=== PATIENT | female | born 1995 ===

== ENCOUNTER 2019-01-24 13:43 | Emergency (ER) | payer BC ==
[2019-01-24 14:23] LABS: Basophils % (Auto) 0.2 % (0.0-1.8); Hematocrit 36.2 % (30.3-42.9); Hemoglobin 12.2 gm/dl (10.1-14.3); Lymphocytes # (Auto) 0.9 K/mm3 (1.2-5.4); Lymphocytes % (Auto) 8.3 % (13.4-35.0); Mean Corpuscular HGB Conc 34 % (30-34); Mean Corpuscular Volume 86 fl (79-97); Monocytes # (Auto) 1.3 K/mm3 (0.0-0.8); Monocytes % (Auto) 11.6 % (0.0-7.3); Platelet Count 273 K/mm3 (140-440); Red Blood Count 4.21 M/mm3 (3.65-5.03); Red Cell Distribution Width 15.5 % (13.2-15.2)
[2019-01-24] MEDS ORDERED: ZOFRAN IV ONE (15:15)
[2019-01-24] MEDS ORDERED: PEPCID IV ONE (15:15)
[2019-01-24 15:27] LABS: Bacteria,Urine 3+ /HPF (Negative); Bilirubin,Urine NEG (Negative); Blood,Urine LG (Negative); Color,Urine Red (Yellow); Mucus,Urine 3+ /HPF; Urobilinogen,Urine < 2.0 mg/dL (<2.0)
[2019-01-24 15:28] LABS: RBC,Urine > 182.0 /HPF (0.0-6.0)
[2019-01-24] MEDS ORDERED: D5NS 1,000 ML IV SCH (16:00)
--- NOTE | 2019-01-24 16:37 | Emergency Department Report ---
<CADEN WILSON - Last Filed: 01/24/19 16:33> ED HPI - General Chief complaint: Vaginal Bleeding Stated complaint: POSS MISCARRIAGE Time Seen by Provider: 01/24/19 14:58 Source: patient Mode of arrival: Ambulatory Limitations: No Limitations - History of Present Illness Initial comments: Patient is a 23-year-old [place] female who is presenting with possible miscarriage. Patient is 7 weeks and is here stating that she has some vaginal bleeding. Patient states she was at [facility] 5 days ago with similar complaints. Patient's was told that she was having a threatened miscarriage however she did have a intrauterine at that time. Patient states that she has had worsening suprapubic cramping which is now 9 out of 10. It was less when she was at hospital. patient states that the bleeding subsided between her last er visit and today however it is restarted. patient has some small clots present. patient's had nausea and vomiting 2 and states she cannot keep anything down for the last 2 days. patient states she feels weak and fatigued. pain is 6 out of 10 - Related Data Previous Rx's Medication Instructions Recorded Last Taken Type Doxylamine Succinate/Vit B6 1 each PO TID PRN #20 tablet. 01/24/19 Unknown Rx [Dre Sharpe 10-10 mg Tablet] Allergies Allergy/AdvReac Type Severity Reaction Status Date / Time No Known Allergies Allergy Unverified 01/24/19 13:45 ED Review of Systems Comment: All other systems reviewed and negative ED Past Medical Hx - Past Medical History Previous Medical History?: Yes Additional medical history: Anemia - Surgical History Past Surgical History?: No - Social History Smoking Status: Never Smoker Substance Use Type: None - Medications Home Medications: Home Medications Medication Instructions Recorded Confirmed Last Taken Type Doxylamine Succinate/Vit B6 1 each PO TID PRN #20 tablet. 01/24/19 Unknown Rx [Dre Sharpe 10-10 mg Tablet] ED Physical Exam - General Limitations: No Limitations General appearance: alert, in no apparent distress - Head Head exam: Present: atraumatic, normocephalic - Eye Eye exam: Present: normal appearance - ENT ENT exam: Present: mucous membranes moist - Neck Neck exam: Present: normal inspection - Respiratory Respiratory exam: Present: normal lung sounds bilaterally. Absent: respiratory distress, wheezes, rales, rhonchi - Cardiovascular Cardiovascular Exam: Present: regular rate, normal rhythm, tachycardia, normal heart sounds. Absent: systolic murmur, diastolic murmur, rubs, gallop - GI/Abdominal GI/Abdominal exam: Present: soft, tenderness (suprapubic), normal bowel sounds. Absent: distended, guarding, rebound - Extremities Exam Extremities exam: Present: normal inspection - Back Exam Back exam: Present: normal inspection - Neurological Exam Neurological exam: Present: alert, oriented X3 - Psychiatric Psychiatric exam: Present: normal affect, normal mood - Skin Skin exam: Present: warm, dry, intact, normal color. Absent: rash ED Medical Decision Making - Lab Data Result diagrams: 01/24/19 13:53 Lab Results 01/24/19 01/24/19 01/24/19 Range/Units 13:53 13:53 13:53 WBC 11.3 H (4.5-11.0) K/mm3 RBC 4.21 (3.65-5.03) M/mm3 Hgb 12.2 (10.1-14.3) gm/dl Hct 36.2 (30.3-42.9) % MCV 86 (79-97) fl MCH 29 (28-32) pg MCHC 34 (30-34) % RDW 15.5 H (13.2-15.2) % Plt Count 273 (140-440) K/mm3 Lymph % (Auto) 8.3 L (13.4-35.0) % [place] % (Auto) 11.6 H (0.0-7.3) % Eos % (Auto) 0.0 (0.0-4.3) % Baso % (Auto) 0.2 (0.0-1.8) % Lymph # 0.9 L (1.2-5.4) K/mm3 [place] # 1.3 H (0.0-0.8) K/mm3 Eos # 0.0 (0.0-0.4) K/mm3 Baso # 0.0 (0.0-0.1) K/mm3 Seg Neutrophils % 79.9 H (40.0-70.0) % Seg Neutrophils # 9.0 H (1.8-7.7) K/mm3 HCG, Qual Positive (Negative) HCG, Quant 59490 H (0-4) mIU/mL Urine Color (Yellow) Urine Turbidity (Clear) Urine pH (5.0-7.0) Ur Specific [place] (1.003-1.030) Urine Protein (Negative) mg/dL Urine Glucose (UA) (Negative) mg/dL Urine Ketones (Negative) mg/dL Urine Blood (Negative) Urine Nitrite (Negative) Urine Bilirubin (Negative) Urine Urobilinogen (<2.0) mg/dL Ur Leukocyte Esterase (Negative) Urine WBC (Auto) (0.0-6.0) /HPF Urine RBC (Auto) (0.0-6.0) /HPF U Epithel Cells (Auto) (0-13.0) /HPF Urine Bacteria (Auto) (Negative) /HPF Urine Mucus /HPF Blood Type 01/24/19 01/24/19 Range/Units 13:53 Unknown WBC (4.5-11.0) K/mm3 RBC (3.65-5.03) M/mm3 Hgb (10.1-14.3) gm/dl Hct (30.3-42.9) % MCV (79-97) fl MCH (28-32) pg MCHC (30-34) % RDW (13.2-15.2) % Plt Count (140-440) K/mm3 Lymph % (Auto) (13.4-35.0) % [place] % (Auto) (0.0-7.3) % Eos % (Auto) (0.0-4.3) % Baso % (Auto) (0.0-1.8) % Lymph # (1.2-5.4) K/mm3 [place] # (0.0-0.8) K/mm3 Eos # (0.0-0.4) K/mm3 Baso # (0.0-0.1) K/mm3 Seg Neutrophils % (40.0-70.0) % Seg Neutrophils # (1.8-7.7) K/mm3 HCG, Qual (Negative) HCG, Quant (0-4) mIU/mL Urine Color Red (Yellow) Urine Turbidity Cloudy (Clear) Urine pH 6.0 (5.0-7.0) Ur Specific [place] 1.018 (1.003-1.030) Urine Protein 100 mg/dl (Negative) mg/dL Urine Glucose (UA) Neg (Negative) mg/dL Urine Ketones Tr (Negative) mg/dL Urine Blood Lg (Negative) Urine Nitrite Neg (Negative) Urine Bilirubin Neg (Negative) Urine Urobilinogen < 2.0 (<2.0) mg/dL Ur Leukocyte Esterase Neg (Negative) Urine WBC (Auto) 3.0 (0.0-6.0) /HPF Urine RBC (Auto) > 182.0 (0.0-6.0) /HPF U Epithel Cells (Auto) 33.0 H (0-13.0) /HPF Urine Bacteria (Auto) 3+ (Negative) /HPF Urine Mucus 3+ /HPF Blood Type O POSITIVE ED Disposition Clinical Impression: Vaginal bleeding affecting early , Threatened miscarriage in early , Nausea and vomiting during Subchorionic hemorrhage in first trimester Qualifiers: Fetus number: single or unspecified fetus Qualified Code(s): O41.8X10 - Other specified disorders of amniotic fluid and membranes, first trimester, not applicable or unspecified Disposition: DC-01 TO HOME OR SELFCARE Condition: Stable Instructions: Threatened Miscarriage (ED), Morning Sickness (ED) Additional Instructions: Have repeat hCG quant labs in 48 hours with CLASSIFIED AD TAKER. Heel were hCG quantitative [place] this visit was [id number]. There is a large subchorionic hemorrhage seen on ultrasound. Remain on bed rest. Follow up with CLASSIFIED AD TAKER in 24-48 hours. Return to ER if increased vaginal bleeding, abdominal pain, and low back pain. Prescriptions: Doxylamine Succinate/Vit B6 [Dre Sharpe 10-10 mg Tablet] 1 each PO TID PRN #20 tablet. PRN Reason: Nausea And Vomiting Referrals: AMADEO QUICK MD [Primary Care Provider] - 3-5 Days IVORY GOINS MD [Referring] - 3-5 Days Forms: Work/School Release Form(ED) <LOU SMITH - Last Filed: 01/24/19 19:04> ED Review of Systems ROS: Stated complaint: POSS MISCARRIAGE Other details as noted in HPI ED Course Vital Signs 01/24/19 01/24/19 13:49 17:34 Temperature 99.7 F H 99.6 F Pulse Rate 115 H 95 H Respiratory 16 16 Rate Blood Pressure 122/84 Blood Pressure 106/59 [Right] O2 Sat by Pulse 97 100 Oximetry - Reevaluation(s) Reevaluation #1: 01/24/19 18:43 This patient was received from Shahida Dumont at 1700 pending OB ultrasound. ED Medical Decision Making - Lab Data Result diagrams: 01/24/19 13:53 - Medical Decision Making The transvaginal and pelvic ultrasound was dictated by the radiologist and report was reviewed by myself. 1. Viable intrauterine dated 7 weeks. A large subchorionic hemorrhage is present. 2. Complex cyst left ovary measuring 2.9 cm is likely physiologic. Reviewed results with patient. Patient instructed to follow-up with an CLASSIFIED AD TAKER within the next 24-48 hours and remain on bed rest. She states she has a CLASSIFIED AD TAKER for follow-up with Dr. Morrison at [facility]. Patient discharged home stable. Critical care attestation.: If time is entered above; I have spent that time in minutes in the direct care of this critically ill patient, excluding procedure time. ED Disposition Is pt being admited?: No Does the pt Need Aspirin: No Time of Disposition: 18:55
--- NOTE | 2019-01-24 18:08 | Ultrasound Report ---
OB ultrasound. 01/24/2019. HISTORY: Bleeding and cramping. FINDINGS: Imaging was performed transabdominally and endovaginally. A viable intrauterine i s dated 7 weeks 0 days. heart tones are present at 149 bpm. A yolk sac is also identified. A subchorionic hemorrhage is larger measuring 2.7 x 6.3 x 5.8 cm. Right ovary measures 4.2 x 2.1 x 4.2 cm. Left ovary measures 4.8 x 2.5 x 3.6 cm. Small cysts are seen bilaterally. A complex cyst on the left measures 2.9 cm. IMPRESSION: 1. Viable intrauterine dated 7 weeks. A large subchorionic hemorrhage is present. 2. Complex cyst left ovary measuring 2.9 cm is likely physiologic. Signer Name: Michael Turner MD Signed: 01/24/2019 6:04 PM Workstation Name: [id number]
[2019-01-24 19:13] VITALS: BP 109/59
== END 2019-01-24 19:13 | disposition home or self-care (01) ==
LOC: ED 13:43
DX: O20.0 Threatened abortion (principal); O21.9 Vomiting of pregnancy, unspecified; O41.8X10 Other specified disorders of amniotic fluid and membranes, first trimester, not applicable or unspecified; Z3A.01 Less than 8 weeks gestation of pregnancy
CPT/HCPCS: 36415; 76801; 76817; 81001; 84702; 84703; 85025; 86900; 86901; 96361; 96374; 96375; 99284; J2405; J7042